=== PATIENT | female | born 1955 | race Caucasian/White ===

== ENCOUNTER → 2017-03-13 | Outpatient (CLI) | payer BC ==
[2017-03-13 13:04] LABS: BASO % 0.8 %; BASO ABS # 0.03 K/uL (0-0.2); COMPLETE YES; EOS % 2.8 %; HEMATOCRIT 41.3 % (37-47); LYMPH % 38.5 %; LYMPH ABS # 1.53 K/uL (1.2-3.4); MEAN CELL VOLUME 92.6 fL (80-100); MEAN CORPUSCULAR HEMOGLOBIN 31.2 pg (25-34); MEAN CORPUSCULAR HGB CONC 33.7 g/dl (32-36); MONO % 9.3 %; NEUT % 48.6 %; PLATELET COUNT 304 K/uL (130-400); RED BLOOD COUNT 4.46 M/uL (4.2-5.4); WHITE BLOOD COUNT 3.97 K/uL (4.8-10.8)
[2017-03-13 13:24] LABS: ALT/SGPT 33 U/L (12-78); AST/SGOT 21 U/L (15-37); BLOOD UREA NITROGEN 15 mg/dl (7-18); BUN/CREATININE RATIO 24.3 (10-20); CALCIUM 9.4 mg/dl (8.5-10.1); CARBON DIOXIDE 18 mmol/L (21-32); CHLORIDE 110 mmol/L (98-107); CHOLESTEROL 265 mg/dl (0-200); CREATININE 0.61 mg/dl (0.60-1.20); GLUCOSE 102 mg/dl (70-99); SODIUM 139 mmol/L (136-145); TRIGLYCERIDES 112 mg/dl (0-150); VERY LOW DENSITY LIPOPROT CALC 22 mg/dl
[2017-03-13 13:27] LABS: ESTIMATED AVERAGE GLUCOSE 117 mg/dl; HA1C FLAG Normal (Normal)
[2017-03-13 13:31] LABS: ALB/GLOB RATIO 1.3 (0.9-2); ALKALINE PHOSPHATASE 50 U/L (45-117); CHOLESTEROL/HDL RATIO 3.6; HDL CHOLESTEROL 74 mg/dl
== END | disposition home or self-care (01) ==
LOC: C.LABSPEC 12:37
PROVIDERS: ATTEND Internal Medicine
DX: I10 Essential (primary) hypertension (principal); E78.5 Hyperlipidemia, unspecified; E11.9 Type 2 diabetes mellitus without complications; M19.90 Unspecified osteoarthritis, unspecified site; R53.83 Other fatigue

== ENCOUNTER 2023-12-15 06:30 | Observation (INO) ==
--- NOTE | 2023-11-09 12:34 | PAT Medication Instructions ---
Medication Instructions Date of Service November 09, 2023 Home Medications acetaminophen 500 mg tablet 1,000 mg PO BID Pain atorvastatin 10 mg tablet 10 mg PO QPM diclofenac sodium 75 mg tablet,delayed release 75 mg PO BID famotidine 20 mg tablet 20 mg PO QAM PRN gerd losartan 50 mg tablet 50 mg PO QPM metformin 500 mg tablet 500 mg PO QPM weight loss ASK your surgeon for instructions diclofenac sodium 75 mg tablet,delayed release 75 mg PO BID Take morning of surgery With a small sip of water, OTHERWISE NOTHING TO EAT OR DRINK AFTER MIDNIGHT: acetaminophen 500 mg tablet 1,000 mg PO BID Pain famotidine 20 mg tablet 20 mg PO QAM PRN gerd (if needed) Take evening before surgery acetaminophen 500 mg tablet 1,000 mg PO BID Pain atorvastatin 10 mg tablet 10 mg PO QPM losartan 50 mg tablet 50 mg PO QPM metformin 500 mg tablet 500 mg PO QPM weight loss Other Notes If you have any questions please call us at [phone] or [phone] or [phone] or [phone]
--- NOTE | 2023-11-22 13:55 | Anesthesiology Consultation ---
Date of Service November 22, 2023 Assessment & Plan (1) Encounter for pre-operative examination: Plan - check BSG am DOS. - right arm restriction. - difficult IV stick. - severe anxiety in medical settings. Dr. Sands advised patient be first case of the day-Yamel with surgeon's office states they will coordinate this. - patient states that if transfer to a larger center is needed she wants transferred to [facility] given familiarity for patient and her with that system. Per [place] transfer center team, [facility] does not have tertiary care center so patient would need transferred to [facility], [facility] or [facility]. I discussed this with patient and she verbalized understanding and states she has no questions or concerns regarding that-states is agreeable to transfer to any of those facilities if needed. - Patient states she will be bringing copy of DNR/end of life wishes. I discussed the usual anesthesia process of life saving measures ayanna-operatively with end of life wishes being implemented to decision of anesthesia/hospitalist/ICU team post-op. 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 - Outpatient joint assessment: Patient is currently scheduled for inpatient pathway. If re-evaluated and patient/surgeon requests outpatient pathway, patient is acceptable candidate for outpatient joint program from anesthesia standpoint pending surgeon's office assessment of pt motivation/support/completion of same day joint program preop requirements. Chart Review Chart Review: Acceptable Risk for Surgery and Patient seen in Pre Admission Testing Teaching & Discussion Pre-Anesthesia Teaching/Discussion Notes: Instructed NPO after midnight before surgery, except medications with 15 cc of water. Medication instructions provided according to the PAT guidelines. History Surgery Operation Date: 12/15/23 08:00 Proposed Procedures p Left Total Knee Arthroplasty - Les Mendes DO Height/Weight Height: 5 ft 1 in Weight: 60.1 kg Allergies Allergy/AdvReac Type Severity Reaction Status Date / Time No Known Allergies Allergy Verified 11/03/23 13:18 Medications Home Medications Medication Instructions Recorded Confirmed Last Taken acetaminophen 500 mg tablet 1,000 mg PO BID Pain 11/03/23 11/03/23 Unknown atorvastatin 10 mg tablet 10 mg PO QPM 11/03/23 11/03/23 Unknown diclofenac sodium 75 mg 75 mg PO BID 11/03/23 11/03/23 Unknown tablet,delayed release famotidine 20 mg tablet 20 mg PO QAM PRN gerd 11/03/23 11/03/23 Unknown losartan 50 mg tablet 50 mg PO QPM 11/03/23 11/03/23 Unknown metformin 500 mg tablet 500 mg PO QPM weight loss 11/03/23 11/03/23 Unknown Wheeled Walker #1 ea 11/22/23 11/22/23 Unknown Past Medical History Medical History GERD (gastroesophageal reflux disease) controlled, stable per pt History of COVID-19 03/2022, not hosp; mild cold symptoms>resolved in less than 1 week Hx of breast cancer 2000, right breast, xrt and chemo, oral meds for 5 years; limb restriction right arm Hyperlipidemia Hypertension "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 Exercise / Class Metabolic Activity III < 4 Walking/Shop/Light housework (ambulates with cane, denies chest discomfort or shortness of breath with usual activities) Past Surgical History Surgical History History of dilatation and curettage History of lumpectomy of right breast Hx of colonoscopy x 2 Past Anesthesia History No Hx of Anesthesia Complications and No Family Hx of Anesthesia Complications History of PONV No Hx of PONV and No Hx of Motion Sickness Social History Smoking Status: Never smoker Do You Dip or Chew Tobacco: No Hx Alcohol Use: Yes alcohol intake frequency: holidays/special occasions only Hx Substance Use: No substance use type: does not use Review of Systems Patient denies chest pain, shortness of breath, dyspnea on exertion, snoring, witnessed apneas, fever, chills, cough, wheezing, or palpitations. Physical Exam Vital Signs Vitals BP initial 180/98 manual left arm; 168/92 second manual check left arm after patient rested for 15 minutes (Pt reports severe anxiety in clinical settings and elevated BP/HR due to this) P 105 TEMP 98.2 SP02 96% on RA RESP 18 Physical Patient resting in chair in no acute distress, alert and oriented, responding appropriately throughout visit, upper extremities tremulous intermittently throughout visit with patient maintaining full consciousness-tremulousness reduces and at times ceases with distraction (patient states this is chronic when she is anxious) Full cervical extension range of motion without pain TMD < 3 finger breadths Mallampati Score 2 Dentition: several caps/crowns, denies chipped or loose teeth, implants or bridges Lungs: normal respiratory effort. Good air movement, clear throughout to auscultation, no adventitious breath sounds Cardiac: regular rate and rhythm, no murmurs noted Carotid arteries: negative bruit bilat Lab Results Anesthesia Preop Results Results Anesthesia Widget: WBC 6.66 K/ul (4.8-10.8) 11/22/23 Hgb 13.2 g/dl (12.0-16.0) 11/22/23 Hct 38.9 % (37.0-47.0) 11/22/23 Plt 326 K/uL (130-400) 11/22/23 Na 139 mmol/L (136-145) 11/22/23 K 3.8 mmol/L (3.5-5.1) 11/22/23 Cl 105 mmol/L (98-107) 11/22/23 CO2 24 mmol/L (21-32) 11/22/23 BUN 12 mg/dl (6-23) 11/22/23 Creat 0.52 mg/dl (0.6-1.2) L 11/22/23 Glucose Level 110 mg/dl (70-99(Fasting)) H 11/22/23 PT 10.9 Seconds (9.0-12.0) 11/22/23 PTT 26 Seconds (21-31) 11/22/23 INR 1.0 (0.9-1.1) 11/22/23 Blood Type AB Positive 11/22/23 Antibody Screen NEGATIVE 11/22/23 Testing Laboratory Results 09/21/23 A1c 5.8% Electrocardiogram Date: 11/22/23 Poor data quality Sinus tachycardia, rate 106 bpm Chest X-Ray Date: 11/22/23 No active disease in the chest.
[~2023-12-15 06:30] MED LIST: BUPIVACAINE 0.5 % 5 MG/1 ML PF 10ML VIAL ONE; ROPIVACAINE 0.5% 5 MG/ML 30 ML VIAL ONE
--- NOTE | 2023-12-15 06:31 | History & Physical Bridge Note ---
Date of Service December 15, 2023 History & Physical Bridge Note I have examined the patient, reviewed the History & Physical and in the interval since the performance of the History & Physical I have noted the following changes of clinical significance: no changes noted
[2023-12-15] MEDS ORDERED: fentaNYL citrate PF 100 MCG/2 ML VIAL ONE (07:19)
[2023-12-15] MEDS ORDERED: MIDAZOLAM HCL 1 MG/ML 2ML VIAL ONE (07:19)
[2023-12-15] MEDS ORDERED: PROPOFOL IV EMULSION 10 MG/ML 100 ML VIAL IV ONE (07:21)
[2023-12-15] MEDS: ACETAMINOPHEN 500 MG TAB PO SCH ×2 (07:29→20:34)
[2023-12-15] MEDS: GABAPENTIN 300 MG CAP PO SCH (07:29)
[2023-12-15] MEDS: LR 500ML BOLUS, THEN 15ML/HR IV SCH (07:29)
[2023-12-15] MEDS: FAMOTIDINE 20 MG TAB PO SCH (07:30)
[2023-12-15] MEDS: LR 60ML/HR IV SCH (07:30)
[2023-12-15] MEDS: dexAMETHasone**PF** 10 MG/ML VIAL IV SCH (07:30)
[2023-12-15] MEDS: TRANEXAMIC ACID 1,000 MG **IV Pre-op IV SCH (07:50)
[2023-12-15] MEDS: ceFAZolin 2000MG 2,000 MG/15 ML SYR IV SCH (08:03)
[2023-12-15] MEDS ORDERED: ATROPINE SULFATE 0.1 MG/ML 10ML SYR IV PRN (08:07)
[2023-12-15] MEDS ORDERED: ePHEDrine sulfate 50 MG/ML AMP IV PRN (08:07)
[2023-12-15] MEDS ORDERED: fentaNYL citrate PF 100 MCG/2 ML VIAL IV PRN (08:07)
[2023-12-15] MEDS: ROPIV 0.5% 246mg, Ketorolac 30mg, EPINEPHrine 0.5mg in NSS INFIL SCH (08:37)
[2023-12-15] MEDS: ORTHO JOINT ANESTHETIC ONE (08:37)
--- NOTE | 2023-12-15 09:30 | Operative Report ---
PG Post Operative Report Pre & Post Diagnosis Operation Date: 12/15/23 08:00 Pre-Op Diagnosis: Degenerative Joint Disease Left Knee Post-Op Diagnosis: Degenerative Joint Disease Left Knee I identified the patient and participated in the time-out.: Yes Procedure Operation Date: 12/15/23 08:00 Actual Procedures p Left Total Knee Arthroplasty(Left) - Les Mendes DO Surgeon Les Mendes DO Antenna Engineer None Estimated Blood Loss 30 Findings Consistent with Post-Op Diagnosis Specimens Left femoral and tibial bone Description of Procedure Implants used: I used a Jules Persona total knee arthroplasty system with a size 5 narrow femur, C tibia, 25 oval patella, and a size 11 medial congruent polyethylene bearing. All components were cemented in place with Biomet cement. Love arrived [facility] for the above procedure. She was seen in the preoperative holding area and the operative extremity was identified and signed. She was given a preoperative antibiotic, TXA, a spinal anesthetic and an adductor nerve block. She was taken back to the operating room and laid on the table in supine position. She was given basic sedation. The operative knee was then prepped and draped in sterile fashion. A timeout was done, and the patient and the operative extremity was properly identified. A midline incision was made directly over the patella. Dissection was taken down to the extensor mechanism. A subvastus arthrotomy was used. The medial retinaculum was released and the fat pad was mostly excised. The knee was flexed and the ACL, PCL, and meniscus were removed. A drill was sent down the center of the femoral canal followed by an intramedullary maribell. Off that maribell a distal femoral cutting block was placed. 9 mm was resected off the distal femur at 5 of valgus. A posterior referencing AP sizing guide was then placed on the distal femur. The femur measured to be a size 5. 2 drill holes were placed in 3 of external rotation. A 4-in-1 cutting block was then impacted into place. Anterior, posterior, and chamfer cuts were then made. The proximal tibia was then exposed. An external tibial alignment guide was placed. A tibial cut guide was then anchored in place and the proximal tibia was then resected. The posterior aspect of the knee was then opened up and any additional meniscus fragments and osteophytes were removed. The tibia measured to be a size C. The tibial plate was then placed in the appropriate rotation and the tibia was drilled and punched. Trial components were then placed. I used a size 11 medial congruent polyethylene insert. The knee was brought through a full range of motion and felt to be stable. The peg holes for the femoral component were then drilled. The patella was then everted and 9 mm was resected off the posterior aspect of the patella. The patella measured to be a size 25 oval. 3 peg holes were then drilled. A trial patella was placed. The knee was once again brought through a full range of motion and felt to be stable. Trial components were then removed. The surrounding soft tissues were injected with 100 cc of an orthopedic pain control cocktail. All components were then cemented into place with Biomet cement. The final polyethylene insert was then snapped into place. Once cement was dry the tourniquet was deflated. Hemostasis was obtained. A dilute betadyne lavage was then done for 3 minutes. The joint was then irrigated with normal saline solution. The subvastus arthrotomy was then closed with #1 Vicryl suture. The skin was closed with 2-0 Vicryl, 3-0V lock suture, and vern. A soft compressive dressing was placed. She was then transferred to a hospital bed and taken to the postanesthesia care unit in stable condition. She tolerated the procedure well. I attest to the content of the Intraoperative Record and any orders documented therein. Any exceptions are noted below.
[2023-12-15] MEDS: LABETALOL HCL IV 5 MG/ML 20ML IV ONE (10:40)
[2023-12-15] MEDS: LABETALOL HCL IV 5 MG/ML 20ML IV STA ×2 (11:03→12:29)
--- NOTE | 2023-12-15 11:22 | XRay Report ---
XR knee LT 1 or 2V routine HISTORY: 68 years-old Female Surgical Post Op left knee arthroplasty COMPARISON: 09/19/2023 TECHNIQUE: 2 views of the left knee FINDINGS: Total joint arthroplasty with patellar resurfacing. Anterior midline skin vern with expected posto perative soft tissue swelling and deep tissue air. Distal femoral intramedullary lucency appears post operative. IMPRESSION: Fluoroscopic assistance of the above. ACT 112: Negative or not required by law. The above report was generated using voice recognition software. It may contain grammatical, syntax o r spelling errors. Electronically signed by: Randolph Samaniego M.D. 12/15/2023 11:20 AM
[2023-12-15] MEDS ORDERED: FAMOTIDINE 20 MG TAB PO PRN (12:20)
[2023-12-15] MEDS ORDERED: oxyCODONE HCL IR 5 MG TAB (IMMEDIATE RELEASE) PO PRN (12:20)
[2023-12-15] MEDS ORDERED: METOCLOPRAMIDE HCL INJ 5 MG/ML 2 ML VIAL IV PRN (12:20)
[2023-12-15] MEDS ORDERED: ONDANSETRON INJ 2 MG/ML 2 ML VIAL IV PRN (12:20)
[2023-12-15] MEDS ORDERED: MAGNESIUM HYDROXIDE SUSP 30 ML UDC PO PRN (12:20)
[2023-12-15] MEDS ORDERED: HYDROmorphone INJ 0.5 MG/0.5 ML SYR IV PRN (12:20)
[2023-12-15] MEDS ORDERED: bisacodyL 10 MG SUPP PR PRN (12:20)
[2023-12-15] MEDS ORDERED: NALOXONE HCL 0.4 MG/1 ML VIAL/CARP IV PRN (12:20)
[2023-12-15] MEDS: TRANEXAMIC ACID 1,000 MG **IV Intra-op IV SCH (12:29)
--- NOTE | 2023-12-15 12:46 | Anesthesiology Progress Note ---
Date of Service December 15, 2023 Anesthesia Post Procedure Vital Signs Vital Signs: Temp Pulse Pulse Pulse Resp BP BP 12/15/23 12:35 12/15/23 12:20 36.9 C 101 H 16 168/68 H 12/15/23 11:30 36.5 C 109 H 17 180/82 H 12/15/23 11:20 36.5 C 88 15 180/83 H 12/15/23 11:10 36.5 C 91 H 21 185/81 H 12/15/23 11:03 88 202/93 H 12/15/23 11:00 36.5 C 97 H 14 202/93 H 12/15/23 10:50 36.5 C 97 H 16 193/90 H 12/15/23 10:40 36.5 C 108 H 20 164/83 H 12/15/23 10:40 108 H 217/94 H 12/15/23 10:30 36.5 C 102 H 23 211/99 H 12/15/23 10:20 36.5 C 93 H 12 214/88 H 12/15/23 10:10 102 H 25 H 205/87 H 12/15/23 10:00 78 15 187/79 H 12/15/23 09:50 85 18 167/69 H 12/15/23 09:40 76 17 151/63 H 12/15/23 09:33 36.0 C L 80 12 123/48 L 12/15/23 07:16 36.9 C 110 H 20 156/119 H Pulse Ox O2 Del Method O2 Flow Rate 12/15/23 12:35 Room Air 12/15/23 12:20 94 Room Air 12/15/23 11:30 97 Nasal Cannula 2 12/15/23 11:20 98 Nasal Cannula 2 12/15/23 11:10 97 Nasal Cannula 2 12/15/23 11:03 12/15/23 11:00 97 Nasal Cannula 2 12/15/23 10:50 97 Nasal Cannula 2 12/15/23 10:40 92 Nasal Cannula 2 12/15/23 10:40 12/15/23 10:30 100 Nasal Cannula 2 12/15/23 10:20 98 Nasal Cannula 2 12/15/23 10:10 102 H Oxymask 3 12/15/23 10:00 100 Oxymask 3 12/15/23 09:50 98 Oxymask 4 12/15/23 09:40 99 Oxymask 4 12/15/23 09:33 94 Oxymask 5 12/15/23 07:16 96 Room Air Notes Mental Status: alert / awake / arousable Patient Amnestic to Procedure: Yes Nausea / Vomiting: adequately controlled Pain: adequately controlled Airway Patency, RR, SpO2: stable & adequate BP & HR: see Notes below Hydration State: stable & adequate Neuraxial Anesthesia: was administered and sensory block is resolving Anesthetic Complications: no major complications apparent Notes: bp treated in PACU
[2023-12-15] MEDS: KETOROLAC TROMETHAMINE 15 MG/ML VIAL IV SCH (13:06)
[2023-12-15] MEDS: SODIUM CHLORIDE 0.9% 1,000 ML IV SCH (13:06)
[2023-12-15] MEDS: ceFAZolin 1000MG 1,000 MG/7.5 ML SYR IV SCH (16:43)
[2023-12-15] MEDS: metFORMIN HCL 500 MG TAB PO SCH (16:43)
[2023-12-15] MEDS: ATORVASTATIN 10 MG TAB PO SCH (20:33)
[2023-12-15] MEDS: DOCUSATE SODIUM 100 MG CAP PO SCH (20:33)
[2023-12-15] MEDS: LOSARTAN POTASSIUM 50 MG TAB PO SCH (20:33)
[2023-12-15] MEDS: SENNA 8.6 MG TAB PO SCH (20:34)
[2023-12-15] MEDS: ASPIRIN 81 MG ECTAB PO SCH (20:36)
--- NOTE | 2023-12-16 08:34 | Discharge Summary ---
Date of Service December 16, 2023 Principal Diagnosis Same as "Discharge Diagnosis" noted below under Discharge Instructions. Discharge Exam Physical examination of the left knee, the dressing is clean and dry. Her leg is out full extension. She has active dorsiflexion plantarflexion of her left ankle. Discharge Data Procedures Performed Operation Date: 12/15/23 08:00 Actual Procedures p Left Total Knee Arthroplasty(Left) - Les Mendes DO Ordered Studies 12/15/23 05:00 US - OR guided needle placemen Routine Hospital Course (1) Status post left knee replacement: On December 15, 2023 Randi arrived at [facility] and underwent a left knee replacement without complication. She had a spinal anesthetic. Postoperatively she was started on aspirin for DVT prophylaxis and transferred to the general orthopedic floors. Her hospital course was uneventful. On postop day #1, her vital signs were stable and her pain was well-controlled. She was able to participate well with physical therapy doing ambulation and range of motion exercises. She was then discharged home. She will follow-up with orthopedics in 2 weeks.. PG Care Time/CCT Total # of Minutes Spent Total Time Spent with Patient: Total time spent is greater than 50% in coordination of care (as documented) at patient's floor/unit and/or counseling patient: Discharge Plan Discharge Items Patient Disposition: Home - Self-Care Reason For Visit: Degenerative Joint Disease Left Knee Discharge Diagnosis: Left knee replacement Activity: Per Instructions section Non-emergency contact: Surgeon Call non-emergency contact if: your wound has increased redness and your wound has increased drainage Follow-up/Referrals: Katarina Briceno MD [Primary Care Provider] - Diet: Regular Addtl Attending Provider Instructions: Activity and Therapy Recommendations: * If you are using [facility] then therapy will be provided at your home until they feel you have accomplished all of your goals. * If you are using [facility] then Physical Therapy will be provided until they feel you are ready to start Outpatient Physical Therapy. * If you are not using home therapy then Outpatient Physical Therapy should start about 3-5 days from your day of surgery. Therapy will last about 6-10 weeks * It is important not to put a pillow under your knee when you are relaxing or sleeping. It is just as important to make sure you are getting your knee perfectly straight as it is to regain your knee bend. * You were shown a series of exercises in the hospital. Do these exercises three times each day including the exercises you were shown in physical therapy. * Get up and walk several times each day. For the first four weeks, try not to stand or walk for more than one hour at a time. If you do stand or walk for more than one hour, you will not hurt anything, but your leg will likely swell. * As you feel comfortable, you may change from the walker or crutches to a cane and then to independent walking. Medications: * Narcotic You will likely be sent home from the hospital with a prescription for the narcotic pain medication that worked best throughout your stay. * Cefadroxil -take the antibiotic twice a day for 10 days to help prevent infection. * Aspirin Most patients will be required to take Aspirin 81mg twice a day for 6 weeks after surgery. This is obtained [id number] and a prescription is not necessary. * Other medications may be prescribed for specific circumstances. If you have any questions, please call the office at . * Resume previous home medications unless otherwise instructed TEDs/Elastic Stockings: The white elastic stockings help limit swelling and prevent blood clots from forming in your legs.~ The more you wear them, the more they work. Wear them for six weeks. Dressing Care: The dressing can be changed after physical therapy on postop day #1. Daily dry dressing changes for a few days, especially if the incision is still draining some. If the incision is not draining then you may leave the vern open to air. If there is a little bit of drainage or if the vern are getting stuck on your clothing then cover the incision with a dry dressing. The vern will be removed at your 2 week follow-up appointment. Showering: You may shower 5 days from the day of surgery as long as the incision is no longer draining. You may shower with the vern exposed. Let soapy water run over the vern and pat them dry. Do not scrub or soak the incision. Things To Watch For: * Drainage from the incision site that occurs more than one week after your surgery. * Increased redness at the incision site. * Fever above 102 degrees Fahrenheit. * Unusual chest pain or shortness of breath. * Call [facility] at with any of the above problems Follow-Up Visit: Follow-up with Dr. Mendes's PA (Les Leos) 2-3 weeks after your day of surgery. He will remove your vern and answer any questions. If you have any additional questions or concerns, Dr Mendes is usually in the office at the same time and will be available An appointment was probably scheduled when you signed-up for surgery in the office. If you have any questions call Office Instructions: More detailed instructions as well as Frequently Asked Questions were provided in a folder by our office when you signed-up for surgery. Please review these instructions when you get home. If you have any further questions or concerns, please feel free to call the office at [phone] Pending Studies at Discharge: No Stand-Alone Forms: My [facility] [employer], Smoking Cessation Medications and DC Order Prescriptions: New oxycodone 5 mg Tablet 5 mg PO Q4H PRN (Reason: pain) Qty: 30 0RF cefadroxil 500 mg capsule 500 mg PO BID 10 Days Qty: 20 0RF aspirin 81 mg Tablet,Delayed Release (Dr/Ec) 81 mg PO BID 42 Days Qty: 0 0RF Continued (DME) Wheeljose Walker Misc See Rx Instructions .MEDSUPPLY Qty: 1 0RF Rx Instructions: As directed losartan 50 mg tablet 50 mg PO QPM metformin 500 mg tablet 500 mg PO QPM atorvastatin 10 mg tablet 10 mg PO QPM acetaminophen 500 mg Tablet 1,000 mg PO BID famotidine 20 mg Tablet 20 mg PO QAM PRN (Reason: gerd) diclofenac sodium 75 mg tablet,delayed release (DR/EC) 75 mg PO BID Discharge Orders: Discharge Order (Routine); Ordered 12/16/23 Ordered By: Les Mendes Admission Data Admit Date/Time: 12/15/23 09:33 Attending Provider: Les Mendes Admit Provider: Les Mendes Primary Care Provider: Katarina Briceno
--- NOTE | 2023-12-16 08:34 | Orthopedic Progress Note ---
Date of Service December 16, 2023 Assessment & Plan (1) Status post left knee replacement: Overall she is doing very well. She is not having much pain in the left knee. She will be seen by physical therapy today for ambulation and range of motion exercises. Her dressing can be changed after physical therapy. She is on aspirin for DVT prophylaxis. She can be discharged home later today. She will follow-up with orthopedics in 2 weeks. Clement Bryan was seen and examined at bedside this morning. Overall she is doing very well. She is not having much pain in the left knee. She has been up and ambulating to the bathroom. She has no complaints. Review of Systems All systems reviewed & are unremarkable except as noted in HPI & below. Physical Exam Physical examination of the left knee, the dressing is clean and dry. Her leg is out full extension. She has active dorsiflexion plantarflexion of her left ankle. Results & Data Results & Data Laboratory Results . Diagnostic Findings Postoperative x-rays of the left knee show the prosthesis to be in anatomic alignment without any evidence of fracture complication, or loosening.. PG Care Time/CCT Total # of Minutes Spent Total Time Spent with Patient: Total time spent is greater than 50% in coordination of care (as documented) at patient's floor/unit and/or counseling patient: Coding Level of Care Code 45284 Post Operative Follow-Up Diagnoses Status post left knee replacement Z96.652
[2023-12-16] MEDS: dexAMETHasone 4 MG TAB PO SCH (09:51)
[2023-12-16] MEDS: MULTIVITAMIN TAB PO SCH (09:52)
== END 2023-12-16 12:30 | disposition home or self-care (01) ==
LOC: 3W 06:30 → ASU 06:30